=== PATIENT | male | born 1970 | race Caucasian/White ===

== ENCOUNTER 2016-12-11 15:09 | Emergency (ER) | payer OTHER ==
[~2016-12-11] VITALS: Ht 185.4 cm; Wt 94.0 kg
[2016-12-11 15:11] VITALS: BP 185/109; PULSE 92; RESP 24; TEMP 97.6; O2SAT 97
[2016-12-11 15:29] VITALS: BP 164/106; PULSE 95; RESP 19; O2SAT 98
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
[2016-12-11] MEDS ORDERED: NORC5TAB PO (16:33)
[2016-12-11] MEDS ORDERED: KETOROLAC TROMETHAMINE 60 MG/2 ML (IM) VIAL IM ONE (16:45)
== END 2016-12-11 17:05 | disposition home or self-care (01) ==
LOC: NEPD 15:09
DX: S42.255A Nondisplaced fracture of greater tuberosity of left humerus, initial encounter for closed fracture (principal); V23.4XXA Motorcycle driver injured in collision with car, pick-up truck or van in traffic accident, initial encounter
CPT/HCPCS: 70450; 73060; 73080; 96372; 99284; J1885